=== PATIENT | female | born 1955 | race Caucasian/White ===

== ENCOUNTER 2016-12-16 18:59 | Emergency (ER) | payer OTHER ==
[2016-12-16 19:11] VITALS: BP 153/102; PULSE 77; TEMP 97.9; BMI 26.0
--- NOTE | 2016-12-16 21:36 | PDOC ---
History of Present Illness - General History Source: Patient, Family Exam Limitations: No Limitations - History of Present Illness Initial Comments: 12/16/16 21:46 The patient is a 61 year old female with significant past medical history of hypertension and depression who presents to the ED for 3 days of progressively worsening chest pain, dyspnea on exertion and palpitation. Patient reports she developed her chest pain, dyspnea on exertion and palpitations 15 days ago, however her symptoms became more prominent within the past 3 days. She describes her chest pain as chest tightness with associated SOB, which she only develops when she exerts herself. Patient rates her pain as a 6/10 on exertion and alleviated at rest. Denies lightheadedness, diaphoresis, jaw pain, shoulder pain, arm pain, leg swelling, nausea, or vomiting. States she has a history of depression and is compliant with her medications, however as per family member, patient has been noted to be more anxious. The patient denies fever, chills, cough, abdominal pain, and diarrhea. Allergies: NKDA Social History: No alcohol, tobacco, or drug use reported. Past Surgical History: None reported PCP: n/a <Alicia Gregory - Last Filed: 12/16/16 21:46> - General History Source: Patient, Family (daughter) <Chao Bhandari - Last Filed: 12/16/16 23:26> - General Chief Complaint: Chest Pain Stated Complaint: CHEST PAIN Time Seen by Provider: 12/16/16 21:28 Past History <Alicia Gregory - Last Filed: 12/16/16 21:46> - Past Medical History Dementia: Yes HTN: Yes Psychiatric Problems: Yes (BIPOLAR, DEPRESSION) - Psycho/Social/Smoking Cessation Hx Anxiety: Yes Suicidal Ideation: No Smoking History: Never smoked Have you smoked in the past 12 months: No Information on smoking cessation initiated: No Hx Alcohol Use: No Drug/Substance Use Hx: No <Chao Bhandari - Last Filed: 12/16/16 23:26> - Past Medical History Allergies/Adverse Reactions: Allergies Allergy/AdvReac Type Severity Reaction Status Date / Time No Known Allergies Allergy Verified 12/16/16 19:11 Home Medications: Ambulatory Orders Amlodipine Besylate [Norvasc -] 5 mg PO DAILY 03/21/13 Memantine HCl [Namenda -] 5 mg PO BID 03/21/13 Mirtazapine [Remeron -] 15 mg PO HS 03/21/13 Naproxen [Naprosyn -] 500 mg PO BID PRN 03/21/13 Risperidone [Risperdal M-Tab] 1 mg PO HS 03/21/13 Sertraline HCl [Zoloft 20mg/mL Oral Solution -] 100 mg PO BID 03/21/13 Temazepam [Restoril] 30 mg PO HS 03/21/13 Triamterene/Hydrochlorothiazid [Triamterene-Hctz 37.5-25 mg Cp] 1 each PO DAILY 03/21/13 Zolpidem Tartrate 5 mg PO HS 03/21/13 Review of Systems - Review of Systems Able to Perform ROS?: Yes Comments:: 12/16/16 21:47 CONSTITUTIONAL: Absent: fever, no chills, no fatigue EYES: Absent: visual changes ENT: Absent: ear pain, no sore throat CARDIOVASCULAR: +chest pain, palpitations RESPIRATORY: +dypnsea on exertion Absent: cough GI: Absent: abdominal pain, no nausea, no vomiting, no constipation, no diarrhea GENITOURINARY: Absent: dysuria, no frequency, no hematuria MUSCULOSKELETAL: Absent: back pain, no arthralgia, no myalgia SKIN: Absent: rash NEURO: Absent: headache <Alicia Gregory - Last Filed: 12/16/16 21:46> *Physical Exam - Vital Signs Last Vital Signs Temp Pulse Resp BP Pulse Ox 97.9 F 77 18 153/102 98 12/16/16 19:05 12/16/16 19:05 12/16/16 19:05 12/16/16 19:05 12/16/16 19:05 - Physical Exam Comments: 12/16/16 21:47 GENERAL: Well-appearing, well-nourished. No apparent distress. HEENT: Normocephalic, atraumatic. PERRL, EOM intact. CARDIOVASCULAR: Normal S1, S2. Regular rate and rhythm. PULMONARY: Clear to auscultation bilaterally. ABDOMEN: Soft, non-distended, non-tender. EXTREMITIES: Normal ROM in all four extremities. No gross deformities. SKIN: Warm, dry. No rash NEUROLOGICAL: No focal neurological deficits. <Alicia Gregory - Last Filed: 12/16/16 21:46> - Vital Signs Last Vital Signs Temp Pulse Resp BP Pulse Ox 97.9 F 77 18 153/102 98 12/16/16 19:05 12/16/16 19:05 12/16/16 19:05 12/16/16 19:05 12/16/16 19:05 <Chao Bhandari - Last Filed: 12/16/16 23:26> Heart Score/ECG Review - ECG Impressions Comment:: 12/16/16 21:47 NSR @76bpm Normal ECG <Alicia Gregory - Last Filed: 12/16/16 21:46> ED Treatment Course - LABORATORY CBC & Chemistry Diagram: 12/16/16 22:20 12/16/16 22:20 <Chao Bhandari - Last Filed: 12/16/16 23:26> Medical Decision Making - Medical Decision Making 12/16/16 23:23 Dr. Bhandari: The scribe's documentation has been prepared under my direction and personally reviewed by me in its entirery. I confirm that the note above accurately reflects all work, treatment, procedures, and medical decision making performed by me. <Chao Bhandari - Last Filed: 12/16/16 23:26> *DC/Admit/Observation/Transfer - Attestations Scribe Attestion: 12/16/16 21:47 Documentation prepared by Alicia Gregory, acting as biomedical field service engineer for Chao Bhandari DO. <Alicia Gregory - Last Filed: 12/16/16 21:46> - Discharge Dispostion Admit: No <Chao Bhandari - Last Filed: 12/16/16 23:26> Diagnosis at time of Disposition: Anxiety Chest pain Qualifiers: Chest pain type: unspecified Qualified Code(s): R07.9 - Chest pain, unspecified - Discharge Dispostion Disposition: HOME Condition at time of disposition: Stable - Referrals Referrals: STAFF,NOT ON [Primary Care Provider] - Caden Horne MD [Staff Physician] - - Patient Instructions Printed Discharge Instructions: DI for Chest Pain, DI for Anxiety -- Adult
[2016-12-16 22:26] LABS: BASOPHIL 0.5 % (0-2.0); EOSINOPHIL 2.4 % (0-4.5); MCHC 33.6 g/dl (32.0-36.0); MEAN CELL VOLUME 89.2 fl (80-96); MEAN PLT VOLUME 8.7 fl (7.5-11.1); NEUTROPHILS 52.3 % (42.8-82.8); PLATELET COUNT 237 K/MM3 (134-434); RDW 13.8 % (11.6-15.6); WHITE BLOOD COUNT 6.8 K/mm3 (4.0-10.0)
[2016-12-16 23:10] LABS: ALBUMIN 3.8 g/dl (3.4-5.0); ANION GAP 6 (8-16); BILIRUBIN,TOTAL 0.3 mg/dL (0.2-1.0); CALCIUM 8.8 mg/dL (8.5-10.1); CO2 29 mmol/L (21-32); CREATININE 0.8 mg/dL (0.55-1.02); GLUCOSE,RANDOM 93 mg/dL (74-106); SGOT/AST 8 U/L (15-37); SGPT/ALT 17 U/L (12-78); TOT PROT 6.7 g/dl (6.4-8.2)
[2016-12-16 23:13] LABS: ALK PHOS 59 U/L (45-117); CPK 47 IU/L (26-192); TROPONIN I < 0.02 ng/ml (0.00-0.05)
--- NOTE | 2016-12-17 15:45 | EKG ---
Test Reason : Blood Pressure : / mmHG Vent. Rate : 076 BPM Atrial Rate : 076 BPM P-R Int : 134 ms QRS Dur : 082 ms QT Int : 404 ms P-R-T Axes : 052 009 047 degrees QTc Int : 454 ms NORMAL SINUS RHYTHM NORMAL ECG WHEN COMPARED WITH ECG OF 21-MAR-2013 21:49, NONSPECIFIC T WAVE ABNORMALITY NO LONGER EVIDENT IN ANTERIOR LEADS Confirmed by HEBER COELLO MD ([id number]) on 12/17/2016 3:45:40 PM Referred By: Confirmed By:HEBER COELLO MD
== END 2016-12-16 23:36 | disposition home or self-care (01) ==
LOC: JER 18:59
DX: R07.9 Chest pain, unspecified (principal); F41.9 Anxiety disorder, unspecified; I10 Essential (primary) hypertension; F31.9 Bipolar disorder, unspecified
CPT/HCPCS: 36415; 80053; 84484; 85025; 93005; 93010; 99282-25

== ENCOUNTER 2020-11-24 16:10 | Emergency (ER) | payer OTHER ==
[2020-11-24 16:23] VITALS: BP 114/74; PULSE 86; TEMP 98; BMI 28.3
== END 2020-11-24 17:27 | disposition home or self-care (01) ==
LOC: JERFT 16:10
DX: S80.01XA Contusion of right knee, initial encounter (principal)
CPT/HCPCS: 73562-TC-RT-FY; 99284-25